=== PATIENT | male | born 1975 | race Asian ===

== ENCOUNTER 2016-04-29 11:06 | Emergency (ER) | payer OTHER ==
[2016-04-29] MEDS ORDERED: DIPHTH,PERTUSS(ACELL),TET VAC 0.5 ML VIAL IM V ONE (11:25)
== END 2016-04-29 12:20 | disposition home or self-care (01) ==
LOC: ED 11:06
DX: S01.91XA Laceration without foreign body of unspecified part of head, initial encounter (principal); Z23 Encounter for immunization; W22.8XXA Striking against or struck by other objects, initial encounter; Y92.000 Kitchen of unspecified non-institutional (private) residence as the place of occurrence of the external cause